=== PATIENT | male | born 1960 ===

== ENCOUNTER 2023-11-29 15:37 | Emergency (ER) | payer OTHER ==
[~2023-11-29] VITALS: Ht 180.3 cm; Wt 78.5 kg
[2023-11-29] MEDS ORDERED: DIPHTH,PERTUSS(ACELL),TET VAC 0.5 ML SYRINGE IM ONE (17:30)
[2023-11-29] MEDS ORDERED: LIDOCAINE HCL 1% 5 ML SDV SUB-Q ONE (17:30)
[2023-11-29] MEDS ORDERED: TETANUS-DIPHTHERIA TOXOIDS/PF 0.5 ML VIAL IM ONE (17:30)
[2023-11-29 18:44] VITALS: BP 126/100
== END 2023-11-29 18:45 | disposition home or self-care (01) ==
LOC: ED 15:37
DX: S51.811A Laceration without foreign body of right forearm, initial encounter (principal); W20.8XXA Other cause of strike by thrown, projected or falling object, initial encounter; Y99.0 Civilian activity done for income or pay; I10 Essential (primary) hypertension; E78.5 Hyperlipidemia, unspecified; F17.200 Nicotine dependence, unspecified, uncomplicated; I25.10 Atherosclerotic heart disease of native coronary artery without angina pectoris
CPT/HCPCS: 12002; 99282